=== PATIENT | male | born 1950 | race Caucasian/White ===

== ENCOUNTER → 2018-01-15 | Outpatient (CLI) | payer OTHER, MEDICARE ==
[~2018-01-15] MED LIST: ALLO300T PO; ATOR20TA PO; BOSE125T PO; BUDE10.2 PO; BUME1TAB21 PO; BUPR75TA6 PO; CEFD300C37 PO; FLUT1DIS5 IH; FURO-92 PO; LEVO750T26 PO; PRED10TA PO; SILD20TA PO; SPIR25TA5 PO; TIOT18CA INH; TYVASO; WARF3TAB PO; WARF7.5T PO
== END | disposition home or self-care (01) ==
LOC: CFH 09:37
PROVIDERS: ATTEND Internal Medicine
DX: J44.9 Chronic obstructive pulmonary disease, unspecified (principal); E87.1 Hypo-osmolality and hyponatremia; I11.0 Hypertensive heart disease with heart failure; I50.1 Left ventricular failure, unspecified; I48.2 Chronic atrial fibrillation; F51.01 Primary insomnia; Z87.891 Personal history of nicotine dependence
CPT/HCPCS: 71046